=== PATIENT | female | born 1930 | race Caucasian/White ===

== ENCOUNTER 2016-05-19 15:48 | Emergency (ER) | payer OTHER, BC ==
--- NOTE | 2016-05-19 15:51 | PDOC ---
History of Present Illness - General History Source: Family (Daughter ), Old Records Exam Limitations: Clinical Condition - History of Present Illness Initial Comments: 05/19/16 16:49 The patient is an 85 year old female, with a significant past medical history of asthma, hypertension, hyperlipidemia, hypothyroidism, atrial fibrillation ( on Xarelto), renal stones s/p bilateral ureteral stents and s/p lithotripsy, frequent UTIs, Parkinsons disease and dementia, who presents to the emergency department with worsening hematuria for the past 5 days. The patients daughter is at the bedside. The patients daughter reports that the patient has needed an ICU admission in the past due to an obstructed renal stone. The patients daughter reports a dry cough for the past couple of days. The patients daughter additionally reports a couple episodes of diarrhea since last night. The patients daughter decided to bring her mother to the ED for evaluation due to her extensive history of renal stones. HPI is entirely provided by the patients daughter secondary to the patients baseline clinical condition. Allergies: Penicillins. Past Surgical History: Left Hip (November 2013). Social History: Non smoker. Denies alcohol or drug use. PCP: Dr. Walsh <Cehy Vega - Last Filed: 05/19/16 16:50> <Kortney Roth - Last Filed: 05/20/16 11:28> - General Chief Complaint: Hematuria Stated Complaint: BLOOD IN URINE Time Seen by Provider: 05/19/16 15:51 Past History <Chey Vega - Last Filed: 05/19/16 16:50> - Past Medical History Anemia: No Asthma: No Cancer: No Cardiac Disorders: Yes (AF) CVA: No COPD: No CHF: No Dementia: Yes Diabetes: No GI Disorders: No Disorders: (multiple uti's) HTN: Yes Hypercholesterolemia: Yes Kidney Stones: Yes Liver Disease: No Psychiatric Problems: Yes (DEPRESSION) Suicide Attempt (Hx): No Seizures: No Thyroid Disease: Yes (HYPO) - Surgical History Orthopedic Surgery: Yes (lt hip 11/24) - Psycho/Social/Smoking Cessation Hx Anxiety: No Suicidal Ideation: No Smoking History: Never smoked Have you smoked in the past 12 months: No Hx Alcohol Use: No Drug/Substance Use Hx: No Substance Use Type: None Hx Substance Use Treatment: No <Kortney Roth - Last Filed: 05/20/16 11:28> - Past Medical History Allergies/Adverse Reactions: Allergies Allergy/AdvReac Type Severity Reaction Status Date / Time Penicillins Allergy Verified 05/19/16 16:19 Home Medications: Ambulatory Orders B Complex with Vitamin C [Super B with Vit C] 1 each PO DAILY 02/18/16 Cholecalciferol (Vitamin D3) [Vitamin D3] 2,000 unit PO DAILY 02/18/16 Ondansetron [Zofran *Odt*] 8 mg SL PRN PRN 02/18/16 Acetaminophen [Tylenol .Regular Strength -] 650 mg PO Q4H PRN #0 tablet Metoprolol Tartrate 12.5 mg PO BID tablet 04/26/16 Lactobacillus Acidophilus [Acidophilus] 1 each PO DAILY 05/19/16 Review of Systems - Review of Systems Able to Perform ROS?: No Comments:: 05/19/16 16:41 Unable to perform ROS due to the patients baseline clinical condition. <Chey Vega - Last Filed: 05/19/16 16:50> *Physical Exam - Vital Signs Last Vital Signs Temp Pulse Resp BP Pulse Ox 97.8 F 59 L 16 188/73 98 05/19/16 15:49 05/19/16 15:49 05/19/16 15:49 05/19/16 15:49 05/19/16 15:49 - Physical Exam Comments: 05/19/16 16:41 GENERAL: Oriented to person and place, in no acute distress. HEAD: No signs of trauma. EYES: PERRLA, EOMI, sclera anicteric, conjunctiva clear. ENT: Dry mucosa. Auricles normal inspection, hearing grossly normal, nares patent, oropharynx clear without exudates. NECK: Normal ROM, supple, no lymphadenopathy, JVD, or masses. LUNGS: Breath sounds equal, clear to auscultation bilaterally. No wheezes, and no crackles. HEART: Regular rate and rhythm, normal S1 and S2, no murmurs, rubs or gallops. ABDOMEN: Soft, nontender, normoactive bowel sounds. No guarding, no rebound. No masses. EXTREMITIES: Normal range of motion, no edema. No clubbing or cyanosis. No cords , erythema, or tenderness. NEUROLOGICAL: Cranial nerves II through XII intact. Normal speech, gait deferred. SKIN: Warm, dry, normal turgor, no rashes or lesions noted. <Chey Vega - Last Filed: 05/19/16 16:50> ED Treatment Course - LABORATORY CBC & Chemistry Diagram: 05/19/16 16:44 05/19/16 16:44 - ADDITIONAL ORDERS Additional order review: Laboratory Results 05/19/16 16:14 Urine Color Yellow Urine Appearance Cloudy Urine pH 6.5 Ur Specific [place] 1.020 Urine Protein 1+ H Urine Glucose (UA) Negative Urine Ketones Trace Urine Blood 3+ H Urine Nitrite Negative Urine Bilirubin 1+ H Urine Urobilinogen 0.2 e.u/dl Ur Leukocyte Esterase Trace Urine RBC Many Urine WBC 2-5 Ur Epithelial Cells Few Urine Bacteria Moderate <Chey Vega - Last Filed: 05/19/16 16:50> - LABORATORY CBC & Chemistry Diagram: 05/19/16 16:44 05/19/16 16:44 <Kortney Roth - Last Filed: 05/20/16 11:28> Medical Decision Making - Medical Decision Making Lab, CXR, CT results d/w patient and daughter at bedside. No acute findings at present. Will DC her home with outpatient urology f/u. Daughter is going to schedule her with Dr. Whitman <Kortney Roth - Last Filed: 05/20/16 11:28> *DC/Admit/Observation/Transfer - Attestations Scribe Attestion: 05/19/16 16:41 Documentation prepared by Chey Vega, acting as medical housekeeper for Kortney Roth MD. <Chey Vega - Last Filed: 05/19/16 16:50> - Discharge Dispostion Admit: No <Kortney Roth - Last Filed: 05/20/16 11:28> Diagnosis at time of Disposition: Hematuria, Nephrolithiasis - Discharge Dispostion Disposition: HOME Condition at time of disposition: Stable - Referrals Referrals: Edison Walsh MD [Primary Care Provider] - Liang Dickens MD [Staff Physician] - - Patient Instructions Printed Discharge Instructions: Kidney Stones -- Adult, DI for Hematuria
[2016-05-19 15:53] VITALS: TEMP 97.8; BMI 30.9
[2016-05-19 16:27] LABS: PH,URINE 6.5 (4.5-8); URINE APPEARANCE Cloudy; URINE BILIRUBIN 1+ (NEGATIVE); URINE BLOOD 3+ (NEGATIVE); URINE COLOR YELLOW; URINE GLUCOSE (UA) Negative (NEGATIVE); URINE KETONE Trace (NEGATIVE); URINE LEUK ESTERASE Trace (NEGATIVE); URINE NITRITE Negative (NEGATIVE); URINE PROTEIN 1+ (NEGATIVE); URINE UROBILINOGEN 0.2 E.U/dl (0.2-1.0)
[2016-05-19 16:37] LABS: URINE BACTERIA MODERATE /hpf (NEGATIVE); URINE RBC MANY /hpf (0-3)
[2016-05-19 16:59] LABS: BASOPHIL 2.2 % (0-2.0); EOSINOPHIL 2.1 % (0-4.5); MCH 30.1 pg (25.7-33.7); MCHC 33.7 g/dl (32.0-36.0); MEAN CELL VOLUME 89.3 fl (80-96); MEAN PLT VOLUME 8.3 fl (7.5-11.1); NEUTROPHILS 56.3 % (42.8-82.8); PLATELET COUNT 212 K/MM3 (134-434); RDW 14.4 % (11.6-15.6); WHITE BLOOD COUNT 5.7 K/mm3 (4.0-10.0)
[2016-05-19 17:08] LABS: ALBUMIN 3.6 g/dl (3.5-5.0); ALK PHOS 56 U/L (32-92); ANION GAP 5 (8-16); BILIRUBIN,TOTAL 1.2 mg/dl (0.2-1.0); CALCIUM 8.7 mg/dl (8.4-10.2); CO2 26 mmol/L (22-28); CREATININE 0.9 mg/dl (0.6-1.3); GLUCOSE,RANDOM 95 mg/dl (74-106); SGOT/AST 28 U/L (10-42); TOT PROT 6.3 g/dl (6.4-8.3)
[2016-05-19 17:25] LABS: SGPT/ALT < 9 U/L (10-40)
[2016-05-19] MEDS ORDERED: SODIUM CHLORIDE 500 ML IV STA (17:45)
[2016-05-19 18:44] VITALS: BP 165/87; PULSE 65
== END 2016-05-19 18:49 | disposition home or self-care (01) ==
LOC: FER 15:48
PROC: 3E0337Z Introduction of Electrolytic and Water Balance Substance into Peripheral Vein, Percutaneous Approach (ICD-10-PCS; principal; 2016-05-19)
DX: R31.9 Hematuria, unspecified (principal); N20.0 Calculus of kidney; J45.909 Unspecified asthma, uncomplicated; I10 Essential (primary) hypertension; E78.5 Hyperlipidemia, unspecified; E03.9 Hypothyroidism, unspecified; I48.91 Unspecified atrial fibrillation; Z79.01 Long term (current) use of anticoagulants; Z95.828 Presence of other vascular implants and grafts; F32.9 Major depressive disorder, single episode, unspecified
CPT/HCPCS: 36415; 71010-TC; 74176; 80053; 81003; 81015; 83690; 85025; 87086; 99283-25